=== PATIENT | male | born 1990 | race Caucasian/White ===

== ENCOUNTER 2017-02-20 03:04 | Inpatient (IN) | payer SELFPAY ==
--- NOTE | ~2017-02-20 | OP ---
Record Of Operation [facility] [address] [place]. 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 PROCEDURES: 1. Right dorsal hand wound. 2. Exploration. 3. Cultures. 4. Irrigation and debridement of soft tissue in region for Vac-Pac placement. SURGEON: Ventura Lake M.D. ROOFING SUPERINTENDENT: Randolph. ANESTHESIA: General. ESTIMATED BLOOD LOSS: Less than 1 mL. COMPLICATIONS: None. DISPOSITION: The patient tolerated the procedure well and was ready to be brought to the recovery room having tolerated the procedure in stable condition. PROCEDURE NOTE: The patient was brought to the operating room and placed in a supine position. After general anesthesia was administered, a pneumatic tourniquet was placed in the right proximal arm. The right upper extremity distal to the tourniquet was prepped and draped in usual sterile manner. A surgical timeout was performed. All were in agreement. The arm was elevated for 5 minutes and then an Esmarch was used to exsanguinate the extremity starting at the wrist and moving proximally. The tourniquet was inflated. A 15 blade scalpel was used to excise the eschar that was covering the penetration site. As soon as this was done pus emanated from the area and cultures were taken. A rongeur was used to remove nonviable tissue in the subcutaneous area and the wound was explored. There was no pieces of metal in the wound, and the wound appeared to be only in the soft tissues of the hand, and appeared not to involve any of the joints. This cut was over this ulnar small finger CMC joint, and this joint was put through a stress and again no evidence of instability or pus was noted in the joint. After debriding the area of nonviable tissue in the subcutaneous area and irrigating the wound with 3 L of pulse lavage. A sponge from the Vac-Pac System was cut and placed into the base of the wound and then the connecting suction tube was placed onto the wound and then connected to its Vac-Pac suction device. This was done after an airtight seal was achieved and then afterwards a sterile dressing and a volar Record Of Operation [address] [address] NAME: NU PERRY : 89 STATUS : ADM IN PAT#: [id number] AGE: 26 ADM/REG DATE : 02/20/17 MR#: [id number] REPORT SERV DATE: 02/20/17 DICTATED BY: VENTURA LAKE DATE: 02/20/17 REPORT STATUS : Draft TRANSCRIBED BY: LOVE DATE: 02/20/17 intrinsic plus splint was applied. Tourniquet was released and the patient was ready to be brought to recovery room in stable condition. JAN/LOVE Ventura Lake M.D. / [id number] CC: Abelardo Preston M.D.
--- NOTE | ~2017-02-20 | CN ---
Consultation Report [facility] [address] [facility] [place]. [address] NAME: NU PERRY : 88 STATUS : ADM IN [facility]#: [id number] AGE: 26 ADM/REG DATE : 02/20/17 MR#: [id number] REPORT SERV DATE: 02/22/17 DICTATED BY: PEDRITO COLE DATE: 02/22/17 REPORT STATUS : Draft TRANSCRIBED BY: MODL DATE: 02/22/17 INFECTIOUS DISEASE CONSULT DATE OF CONSULTATION: REASON FOR REFERRAL: Evaluation and treatment of hand infection. HISTORY OF PRESENT ILLNESS: The patient is a 26-year-old male without any chronic medical history. 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 It was a deep cut. He washed it out carefully, but it began to turn red and swell. He went to [facility] and was felt to have an abscess there, but transferred here since there was no hand surgeon there. This all occurred on 02/20/2017. He was evaluated by Dr. Hitchcock of [facility], taken to surgery for debridement of the abscess with no comment on any bone or tendon involvement. Cultures of that grew methicillin-resistant Staph aureus. He is currently on vancomycin and Unasyn. He has a very bulky heavy dressing on it, so the wound is not really visible. No other injuries associated with that episode. PAST MEDICAL HISTORY: Otherwise unremarkable. MEDICATIONS: As mentioned above. ALLERGIES: HE HAS NO KNOWN ANTIMICROBIAL ALLERGIES. SOCIAL HISTORY: He is single, has a girlfriend who is with him now. 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 Does not smoke. He has no history of alcohol or substance abuse. FAMILY HISTORY: Noncontributory. PHYSICAL EXAMINATION: GENERAL: Nontoxic adult male, in no acute distress. Alert and oriented x3. VITAL SIGNS: His temperature here has been normal throughout the hospital stay since admission when it was 99.8, it is 97.8 at present, with a pulse of 75, respirations 18, blood pressure 136/73, weight 74 kg. HEENT: Sclerae are clear. No oral lesions. NECK: Supple. LUNGS: Clear. HEART: Regular rate and rhythm. ABDOMEN: Soft, nontender. Positive bowel sounds. Right hand was covered by a bulky dressing. The arm above it appeared to be normal. LABORATORY DATA: White blood cell count 12 when he came in, it is 7.4 today with hematocrit Consultation Report [place] [id number] [place]. [address] NAME: NU PERRY : 88 STATUS : ADM IN [facility]#: [id number] AGE: 26 ADM/REG DATE : 02/20/17 MR#: [id number] REPORT SERV DATE: 02/22/17 DICTATED BY: PEDRITO COLE DATE: 02/22/17 REPORT STATUS : Draft TRANSCRIBED BY: LOVE DATE: 02/22/17 41.5, and platelets 246. Normal differential on the white count. BUN and creatinine 11 and 0.66. IMPRESSION: Hand infection following trauma and appears the causative organism is methicillin-resistant Staph aureus. He has been debrided. He is to go back to surgery today to determine whether the Vac-Pac could be removed and the wound can be closed. RECOMMENDATIONS: 1. Continue the vancomycin. 2. Stop the Unasyn. 3. When he is otherwise ready for discharge, can likely change him to oral Zyvox to complete his therapy with another 7-10 days. 4. Finally, I will follow the patient with you. I appreciate very much your consulting on this patient. DYLAN Pedrito Cole M.D. / [id number] CC: Vera Dunn M.D.
--- NOTE | ~2017-02-20 | HP ---
History And Physical [place] [id number] [facility] [place]. [address] NAME: NU PERRY : 89 STATUS : ADM IN [facility]#: [id number] AGE: 26 ADM/REG DATE : 02/20/17 MR#: [id number] REPORT SERV DATE: 02/20/17 DICTATED BY: JHOAN HANNAH DATE: 02/20/17 REPORT STATUS : Draft TRANSCRIBED BY: MODL DATE: 02/20/17 DATE OF ADMISSION: 02/20/2017 CHIEF COMPLAINT: A 26-year-old male with no primary care physician presenting with right hand cellulitis and swelling. HISTORY OF PRESENT ILLNESS: The patient's history was obtained through an interview with patient and his girlfriend. No previous records were available to review. 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 He has been trying to "doctor it up" at home but it had increasing swelling and particularly over the last 24 hours has become excessively swollen and he has developed redness, pain that has begun to extend up his right arm. With regard to right hand pain extending into his wrist and arm, a full aching quality, 9/10 severity. No right axillary fullness or pain. No fevers or chills. No nausea or vomiting. No shortness of breath. No chest pain. REVIEW OF SYSTEMS: Otherwise, 14-point review of systems was obtained and was negative. PAST MEDICAL HISTORY: He denies any previous medical problems. No heart disease. No lung disease. No previous infections. PAST SURGICAL HISTORY: Denies any. ALLERGIES: NO KNOWN DRUG ALLERGIES. SOCIAL HISTORY: No tobacco abuse. No alcohol abuse. He is single, has no children. Lives in [place], [place]. 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 FAMILY HISTORY: Heart disease. CURRENT MEDICATIONS: Denies any. PHYSICAL EXAMINATION: VITAL SIGNS: Temperature 98.4, pulse 100, blood pressure 165/95, respiratory rate 17, O2 saturation 99% on room air. GENERAL: Pleasant, cooperative male. He describes distress from the pain in his right hand. HEENT: Pupils equal, round, and reactive to light. No conjunctival pallor. No scleral icterus. Nares are patent. Oropharynx is clear of obstruction. Moist mucous membranes. NECK: Trachea midline. No thyromegaly. History And Physical [place] [address] [facility] [place]. [address] NAME: NU PERRY : 89 STATUS : ADM IN [facility]#: [id number] AGE: 26 ADM/REG DATE : 02/20/17 MR#: [id number] REPORT SERV DATE: 02/20/17 DICTATED BY: JHOAN HANNAH DATE: 02/20/17 REPORT STATUS : Draft TRANSCRIBED BY: MODL DATE: 02/20/17 LYMPH: No cervical lymphadenopathy. No supraclavicular lymphadenopathy. No right axillary lymphadenopathy. RESPIRATORY: Clear to auscultation to bases. No wheezes, rales, or rhonchi. Normal respiratory effort. CARDIOVASCULAR: Tachycardic. Regular rhythm. No murmurs, rubs, or gallops. No extremity edema is appreciated. ABDOMEN: Soft, nontender, nondistended. Normal bowel sounds auscultated throughout. No organomegaly. DERMATOLOGICAL: The patient's right hand shows extensive area of erythema, heat, swelling, tenderness. His hand is swollen extensively with underlying fluctuance and this erythema and fluctuance seems to extend into his right wrist and right lateral forearm, otherwise, warm and dry extremities. No pallor. No cyanosis. PSYCHIATRIC: Normal affect. Good mood. Alert and oriented x3. LABORATORY DATA: White blood cell count 11.3, hemoglobin 15, hematocrit 45, platelets 285. Sodium 141, potassium 3.5, chloride 105, bicarb 27, BUN 11, creatinine 1.0, glucose 109. ASSESSMENT AND PLAN: The patient has right hand cellulitis with probable underlying abscess or deep tissue infection. Placed on IV vancomycin, IV Unasyn. Consult hand surgeon, Dr. Hitchcock who is aware of case. KPL/MODL Jhoan Hannah M.D. / [id number] CC: Abelardo Preston M.D.
--- NOTE | ~2017-02-20 | DS ---
Discharge Summary [facility] [address] [place]. [address] NAME: NU PERRY : 88 STATUS : DIS IN PAT#: [id number] AGE: 26 ADM/REG DATE : 02/20/17 MR#: [id number] REPORT SERV DATE: 02/23/17 DICTATED BY: HIEN BENAVIDES DATE: 02/23/17 REPORT STATUS : Draft TRANSCRIBED BY: MODL DATE: 02/23/17 ADMISSION DATE: 02/20/2017 DISCHARGE DATE: 02/23/2017 FINAL HOSPITAL DIAGNOSES: Cellulitis of the hand. CONSULTATIONS: Dr. Hitchcock, Orthopedics, and Dr. Ocampo, Infectious Disease. PROCEDURES: Debridement of the right hand lesion on the 02/20/2017 and 02/22/2017. CURRENT PHYSICAL FINDINGS AND HISTORY OF PRESENT ILLNESS: Please see initial dictated H and P by Dr. Power. In brief, the patient is a 26-year-old male, with essentially negative past medical history, presented with complaint of pain and swelling over the dorsum of his hand several days prior to admission. HOSPITAL COURSE: Initial vital signs showed a blood pressure 137/62, and temperature 99.8. BMP was unremarkable during this hospital stay. Initial white count was 12, with subsequent 12.6, and 7.4 on 02/22/2017. Wound cultures grew out MRSA. The patient was admitted. He was started on Unasyn and vancomycin. After consultation and procedure and cultures his Unasyn was discontinued. The vancomycin level was subtherapeutic. He was switched to p.o. Zyvox. The patient had no problems after his first debridement and wound VAC placement. After he returned from his second procedure at which time, I believe the wound VAC was removed and was closed. He apparently left his room without notifying the nursing staff. I was notified the following morning that the patient had left on the evening of 02/22/2017. It was attempted to contact him on the afternoon of 02/23/2017, however, the number that was listed for him, the individual answering the phone stated that the patient did not leave there that he received multiple calls after midnight and he requested the number be removed as this is not the number of the patient, no other number was available to contact the patient. He left without his prescription for his p.o. Zyvox. All attempts were made to contact the patient, to provide him antibiotics and followup, but have not been successful at this time. JARETH/LOVE Hien Benavides M.D. / [id number] CC: Hien Benavides M.D.
--- NOTE | ~2017-02-20 | HP ---
History And Physical [place] [address] [place]. [address] NAME: PAUL PACHECO : 88 STATUS : ADM IN [facility]#: [id number] AGE: 26 ADM/REG DATE : 02/20/17 MR#: [id number] REPORT SERV DATE: 02/20/17 DICTATED BY: VENTURA LAKE DATE: 02/20/17 REPORT STATUS : Draft TRANSCRIBED BY: MODL DATE: 02/20/17 DATE OF ADMISSION: 02/20/2017 PREOPERATIVE DIAGNOSIS: Right hand dorsal ulnar cut hypothenar area, 02/16/2017, with cellulitis and probable abscess. 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 This caused a local wound, which he attended but over the next 24 to 48 hours, the area became red and painful. He was initially seen at [facility] yesterday or late last night where a white count was noted to be 11.3. There was a question of an abscess and he was then transferred to this hospital which has hand surgery care. No previous injuries to the right ulnar hand, but some two weeks prior to this injury, he sustained a right index finger crush injury when a friend accidentally stepped on his finger again while working on a machine on a motorcycle engine. He has had no fever, but adds that the pain and swelling in his right hand had been worsening over the past 24 to 48 hours and is quite painful. PAST MEDICAL HISTORY: None. PAST SURGICAL HISTORY: None. MEDICATIONS: None. ALLERGIES: NONE. 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 He is single but does have a girlfriend. Negative for tobacco or ETOH, and negative for recreational drugs. REVIEW OF SYSTEMS: 13-point review of systems is within normal, or reveals no abnormalities other than tattoos. FAMILY HISTORY: A mother who of heart disease. A father who is healthy. He has no siblings. PHYSICAL EXAMINATION: GENERAL: A pleasant, cooperative, 26-year-old male, in only mild distress. VITAL SIGNS: Height 5 feet 10 inches, weight 165 pounds. Temperature 98.7, heart rate 85, blood pressure 137/88, respiratory rate 18. O2 sats on room air: 98%. HEENT: Normocephalic, atraumatic. Some teeth missing. Other teeth with definite caries. Pharynx not injected. COR: Regular rate and rhythm. LUNGS: Clear to auscultation. ABDOMEN: Soft, nontender. MUSCULOSKELETAL: C-spine nontender. Full range of motion. Nontender. Left shoulder, History And Physical [address] [address] NAME: PAUL PACHECO : 88 STATUS : ADM IN [facility]#: [id number] AGE: 26 ADM/REG DATE : 02/20/17 MR#: [id number] REPORT SERV DATE: 02/20/17 DICTATED BY: VENTURA LAKE DATE: 02/20/17 REPORT STATUS : Draft TRANSCRIBED BY: LOVE DATE: 02/20/17 elbow, wrist, and all fingers with functional range of motion. The right arm is held close to the body. The shoulder has no pain with range of motion testing. The right elbow has a functional range of motion with flexion and extension. The right hand and distal forearm are swollen and on the ulnar aspect of the hypothenar area, there is a cut/wound several centimeters in diameter, but no evidence of purulent discharge. The hand is quite swollen, and there is decreased range of motion of all fingers secondary to pain. There are 2+ radial and ulnar pulses and normal sensation to gross light touch, all finger tips. The left shoulder, elbow, wrist, and all fingers with full range of motion. No abnormalities on the left hand. Both hips, knees, and ankles with no pain with [id number] testing. LYMPHATIC: Positive for axillary adenopathy on the right, but not on the left. There is negative epitrochlear adenopathy. SKIN: Swollen, slightly red hand leading into forearm with some warmth. There are multiple tattoos about the body. LABS: White count taken at [facility], 11.3. IMPRESSION: Right hand laceration/cut while working on a magazine grinder loader, 01/16/2017, with right upper extremity cellulitis and probable abscess. PLAN: Exploration of right hand wound with incision, drainage, irrigation, debridement, and possible Vac-Pac placement. The risks and benefits of the surgery were discussed. These include persistent infection; worsening pain; nerve, artery, tendon damage; ; stroke; heart attack; and no guarantees were made in regard to the ultimate success of the operation. It was also informed that he will probably need multiple surgeries to eradicate this infection. All questions were answered by me to his satisfaction. He wished to proceed with surgery. We will plan for this shortly. JAN/LOVE [place] Lake M.D. / [id number] CC: Abelardo Preston M.D.
--- NOTE | ~2017-02-20 | OP ---
Record Of Operation [facility] [address] [place]. [address] NAME: NU PERRY : 88 STATUS : ADM IN PAT#: [id number] AGE: 26 ADM/REG DATE : 02/20/17 MR#: [id number] REPORT SERV DATE: 02/22/17 DICTATED BY: VENTURA LAKE DATE: 02/22/17 REPORT STATUS : Draft TRANSCRIBED BY: MODL DATE: 02/22/17 DATE OF PROCEDURE: 02/22/2017 PREOPERATIVE DIAGNOSES: Right dorsal ulnar hand Methicillin-resistant Staphylococcus aureus infection from injury on 02/16/2017, requiring irrigation and debridement, and VAC pack placement on 02/20/2017. POSTOPERATIVE DIAGNOSES: Right dorsal ulnar hand Methicillin-resistant Staphylococcus aureus infection from injury on 02/16/2017, requiring irrigation and debridement, and VAC pack placement on 02/20/2017. PROCEDURE: Right dorsal hand: 1. Cultures. 2. Irrigation and debridement. 3. Wound closure over a half a gram of vancomycin powder sprinkled into the wound. SURGEON: Ventura Lake M.D. ANESTHESIA: General. ESTIMATED BLOOD LOSS: 5 mL. COMPLICATIONS: None. DISPOSITION: The patient tolerated the procedure well and he was brought to the recovery room in stable condition. PROCEDURE NOTE: The patient was brought to the operating room and placed in supine position. After general anesthesia was administered, a pneumatic tourniquet was placed around the right proximal arm, and the splint was taken off the hand, and afterwards an Esmarch was used to exsanguinate the extremity, and tourniquet was inflated. The remaining of the dressings were removed, but the VAC pack sponge was kept in place. The right upper extremity was then prepped and draped in usual sterile manner. The sutures were removed. The VAC pack sponge was removed. The wound was inspected and was noted to be very clean with good granulation tissue. Cultures were taken. The wound was irrigated with 3 L of normal saline via pulse lavage, and a 15-blade scalpel, and pickups were used to debride the necrotic edges of the skin wound. The wound was then undermined and then closed after vancomycin powder was sprinkled into the wound (approximately a half a gram), after closure sterile dressing and a volar splint was applied. Tourniquet was released. The patient was ready to be brought to recovery room having tolerated the procedure well. RM/MODL [place] Record Of [facility] [address] [place] [address] [address] NAME: NU PERRY : 88 STATUS : ADM IN [facility]#: [id number] AGE: 26 ADM/REG DATE : 02/20/17 MR#: [id number] REPORT SERV DATE: 02/22/17 DICTATED BY: VENTURA LAKE DATE: 02/22/17 REPORT STATUS : Draft TRANSCRIBED BY: MODManuel DATE: 02/22/17 Vera Lake / [id number] CC: Tate Quintanilla M.D.
[2017-02-20 08:27] LABS: BASOPHILS 0.7 %; BASOPHILS ABSOLUTE 0.09 10/3/uL (0.0-0.16); EOSINOPHILS 2.5 %; HEMATOCRIT 42.1 % (40.0-51.0); HEMOGLOBIN 14.4 g/dL (13.6-17.8); IMMATURE GRANULOCYTES 0.2 %; IMMATURE GRANULOCYTES ABSOLUTE 0.02 10/3/uL (0.0-0.11); LYMPHOCYTES 28.7 %; LYMPHOCYTES ABSOLUTE 3.45 10/3/uL (0.67-4.30); MEAN CORPUS HGB CONC 34.2 g/dL (32.0-36.0); MEAN CORPUSCULAR HEMOGLOB 31.4 pg (26.0-34.0); MEAN CORPUSCULAR VOLUME 91.9 fL (80-100); MEAN PLATELET VOLUME 9.2 fL (9.2-13.0); MONOCYTES 13.9 %; MONOCYTES ABSOLUTE 1.67 10/3/uL (0.21-1.20); NEUTROPHILS ABSOLUTE 6.49 10/3/uL (2.02-8.40); PLATELET COUNT 251 10/3/uL (150-400); RBC DISTRIBUTION WIDTH 12.5 % (12.0-16.0); RED CELL COUNT 4.58 10/6/uL (4.7-6.1)
[2017-02-20 08:28] LABS: MANUAL DIFF NO %
[2017-02-20 08:30] LABS: PROTIME (NOT ORD) 13.1 SEC (12.0-14.5)
[2017-02-20 08:31] LABS: PARTIAL THROMBO TIME 34.1 SEC (22.5-37.2)
[2017-02-20 08:41] LABS: ALBUMIN 3.1 G/DL (3.5-5.0); ALKALINE PHOSPHATASE 75 U/L (45-117); BUN (BLOOD UREA NITROGEN) 9 MG/DL (6-23); CALCIUM, SERUM 8.3 MG/DL (8.5-10.4); CHLORIDE, SERUM 107 MMOL/L (96-112); CO2 (CARBON DIOXIDE) 29 MMOL/L (24-34); CPK 146 U/L (0-200); CREATININE 0.91 MG/DL (0.70-1.30); GFR AFRICAN AMERICAN 133 ML/MIN (>=60); GFR NON AFRICAN AMERICAN 115 ML/MIN (>=60); GLOBULIN 3.2 G/DL (2.5-4.1); GLUCOSE, SERUM 98 MG/DL (60-99); POTASSIUM, SERUM 4.1 MMOL/L (3.5-5.3); SGOT(AST) 10 U/L (5-40); SGPT(ALT) 18 U/L (5-65); SODIUM, SERUM 143 MMOL/L (135-148); TOTAL BILIRUBIN 0.2 MG/DL (0-1.2); TOTAL PROTEIN 6.3 G/DL (6.0-8.5); ULTRASENSITIVE TSH 0.901 MCIU/ML (0.358-3.740)
[2017-02-21 05:37] LABS: BASOPHILS 0.9 %; BASOPHILS ABSOLUTE 0.11 10/3/uL (0.0-0.16); EOSINOPHILS 1.2 %; EOSINOPHILS ABSOLUTE 0.15 10/3/uL (0.0-0.53); HEMATOCRIT 38.3 % (40.0-51.0); HEMOGLOBIN 13.2 g/dL (13.6-17.8); IMMATURE GRANULOCYTES 0.3 %; IMMATURE GRANULOCYTES ABSOLUTE 0.04 10/3/uL (0.0-0.11); LYMPHOCYTES 26.9 %; LYMPHOCYTES ABSOLUTE 3.38 10/3/uL (0.67-4.30); MEAN CORPUS HGB CONC 34.5 g/dL (32.0-36.0); MEAN CORPUSCULAR HEMOGLOB 31.7 pg (26.0-34.0); MEAN CORPUSCULAR VOLUME 92.1 fL (80-100); MEAN PLATELET VOLUME 9.5 fL (9.2-13.0); MONOCYTES 11.2 %; MONOCYTES ABSOLUTE 1.41 10/3/uL (0.21-1.20); NEUTROPHILS 59.5 %; NEUTROPHILS ABSOLUTE 7.47 10/3/uL (2.02-8.40); PLATELET COUNT 234 10/3/uL (150-400); RBC DISTRIBUTION WIDTH 12.2 % (12.0-16.0); RED CELL COUNT 4.16 10/6/uL (4.7-6.1); WHITE BLOOD CELLS 12.6 10/3/uL (4.5-10.5)
[2017-02-21 05:43] LABS: MANUAL DIFF NO %
[2017-02-21 05:51] LABS: BUN (BLOOD UREA NITROGEN) 10 MG/DL (6-23); CALCIUM, SERUM 8.1 MG/DL (8.5-10.4); CHLORIDE, SERUM 107 MMOL/L (96-112); CO2 (CARBON DIOXIDE) 26 MMOL/L (24-34); CREATININE 0.75 MG/DL (0.70-1.30); GFR AFRICAN AMERICAN 146 ML/MIN (>=60); GFR NON AFRICAN AMERICAN 126 ML/MIN (>=60); GLUCOSE, SERUM 114 MG/DL (60-99); POTASSIUM, SERUM 4.2 MMOL/L (3.5-5.3); SODIUM, SERUM 140 MMOL/L (135-148)
[2017-02-22 09:07] LABS: BASOPHILS 1.2 %; BASOPHILS ABSOLUTE 0.09 10/3/uL (0.0-0.16); EOSINOPHILS 4.4 %; EOSINOPHILS ABSOLUTE 0.33 10/3/uL (0.0-0.53); HEMATOCRIT 41.5 % (40.0-51.0); HEMOGLOBIN 14.4 g/dL (13.6-17.8); IMMATURE GRANULOCYTES 0.4 %; IMMATURE GRANULOCYTES ABSOLUTE 0.03 10/3/uL (0.0-0.11); LYMPHOCYTES 45.2 %; LYMPHOCYTES ABSOLUTE 3.36 10/3/uL (0.67-4.30); MEAN CORPUS HGB CONC 34.7 g/dL (32.0-36.0); MEAN CORPUSCULAR HEMOGLOB 31.6 pg (26.0-34.0); MEAN PLATELET VOLUME 9.2 fL (9.2-13.0); MONOCYTES 10.5 %; MONOCYTES ABSOLUTE 0.78 10/3/uL (0.21-1.20); NEUTROPHILS 38.3 %; NEUTROPHILS ABSOLUTE 2.85 10/3/uL (2.02-8.40); PLATELET COUNT 246 10/3/uL (150-400); RBC DISTRIBUTION WIDTH 12.6 % (12.0-16.0); RED CELL COUNT 4.56 10/6/uL (4.7-6.1)
[2017-02-22 09:08] LABS: MANUAL DIFF NO %; WHITE BLOOD CELLS 7.4 10/3/uL (4.5-10.5)
[2017-02-22 09:21] LABS: ALBUMIN 2.8 G/DL (3.5-5.0); BUN (BLOOD UREA NITROGEN) 11 MG/DL (6-23); CALCIUM, SERUM 8.3 MG/DL (8.5-10.4); CHLORIDE, SERUM 107 MMOL/L (96-112); CO2 (CARBON DIOXIDE) 25 MMOL/L (24-34); CREATININE 0.66 MG/DL (0.70-1.30); GFR AFRICAN AMERICAN 154 ML/MIN (>=60); GFR NON AFRICAN AMERICAN 133 ML/MIN (>=60); GLUCOSE, SERUM 90 MG/DL (60-99); PHOSPHORUS, SERUM 3.4 MG/DL (2.5-4.5); SODIUM, SERUM 142 MMOL/L (135-148); VANCOMYCIN TROUGH 4.9 MCG/ML (10.0-20.0)
== END 2017-02-23 04:09 | disposition left against medical advice (07) | DRG 571 ==
LOC: 4SO 03:04
PROVIDERS: Hospitalist; Internal Medicine
DX: S61.411A Laceration without foreign body of right hand, initial encounter (principal); L03.113 Cellulitis of right upper limb; L02.511 Cutaneous abscess of right hand; W31.1XXA Contact with metalworking machines, initial encounter; Y93.89 Activity, other specified; Y92.89 Other specified places as the place of occurrence of the external cause; Y99.0 Civilian activity done for income or pay; K02.9 Dental caries, unspecified; R59.9 Enlarged lymph nodes, unspecified; B95.62 Methicillin resistant Staphylococcus aureus infection as the cause of diseases classified elsewhere
CPT/HCPCS: 80048; 80053; 80069; 80202; 82550; 83735; 84443; 85025; 85610; 85730; 87070; 87075; 87077; 87102; 87186; 87205; A9270-GY; J0295; J2250; J2405; J3010; J3370